=== PATIENT | female | born 1990 | race Caucasian/White ===

== ENCOUNTER 2020-03-29 21:58 | Emergency (ER) | payer BC, OTHER ==
[2020-03-29 22:07] VITALS: BP 106/71; PULSE 100; TEMP 97.6; BMI 25.9
--- NOTE | 2020-03-29 23:28 | PDOC ---
History of Present Illness - General Chief Complaint: Constipation Stated Complaint: CONSTIPATION Time Seen by Provider: 03/29/20 22:29 History Source: Patient Exam Limitations: No Limitations - History of Present Illness Initial Comments: 03/29/20 23:23 This is a 30-year-old female who comes in complaining of constipation. Patient said she feels the urge to go but is unable to get any of the stool out. Patient denies any fever, chills, nausea or vomiting. Patient has history of constipation in the past. Allergies: as per nursing notes Past Medical History: none Social history: Lives with family. No smoking. No alcohol. No illicit drugs. Surgical history: None General: No fevers or chills, no weakness, no weight loss HEENT: No change in vision. No sore throat,. No ear pain CardioVascular: no chest discomfort. No shortness of breath Respiratory:No cough, or wheezing. Gastrointestinal: no nausea, vomiting, diarrhea or + constipation, No rectal bleeding Genitourinary: No dysuria, hematuria, or frequency Musculoskeletal: No joint or muscle pain or swelling Neurologic: No headache, vertigo, dizziness or loss of consciousness Psychiatric: nor depression Skin: No rashes or easy bruising Endocrine: no increased thirst or abnormal weight change Allergic: no skin or latex allergy All other systems reviewed and normal Exam: General: Well-nourished well-developed individual, no acute distress HEENT: Throat: Normal, tonsils normal, no erythema or exudate Neck: Supple, no meningeal signs, no lymphadenopathy Eyes::Pupils equal reactive and round, extraocular motion intact Chest: Nontender to palpation Cardiac: S1-S2 normal, regular rate and rhythm, no murmurs rubs or gallops Respiratory: Lungs clear to auscultation bilateral Abdomen: Soft, nondistended, normal bowel sounds, there is mild tenderness on palpation diffusely Rectal: There is a large amount of stool that I am barely able to palpate with my digital finger because it is above the rectal vault. Extremities: Warm, dry, no cyanosis, clubbing, or edema Skin: No rashes Neuro: Alert and oriented x3, CN II - XII intact, nonfocal exam with normal strength, normal sensation, normal reflexes, normal gait, Psych: Normal mood and affect Assessment and plan: This a 30-year-old female with constipation. Patient given fleets retention enema and a fleets saline enema with some relief of her constipation. Patient discharged home with a bottle of mag citrate. Past History - Medical History Allergies/Adverse Reactions: Allergies Allergy/AdvReac Type Severity Reaction Status Date / Time No Known Allergies Allergy Verified 03/29/20 22:01 Home Medications: Ambulatory Orders Vitamins ([facility]) - [ .Vitamins *Rx*] 1 tab PO DAILY 06/18/12 Bisacodyl Suppository [Dulcolax Suppository -] 10 mg RC DAILY 03/29/20 COPD: No GI Disorders: Yes (COLITIS) - Reproductive History Is Patient Now?: Yes (#): 3 Para: 0 - Psycho-Social/Smoking History Smoking Status: No Smoking History: Never smoked Number of Cigarettes Smoked Daily: 0 - Substance Abuse Hx (Audit-C & DAST Scrn) How often the patient has a drink containing alcohol: Never Score: In Men: 4 or > Positive; In Women: 3 or > Positive: 0 Screen Result (Pos requires Nsg. Audit-10AR): Negative In the last yr the pt used illegal drug/Rx for NonMed reason: No Score: Yes response is considered Positive: 0 Screen Result (Positive result requires Nsg. DAST-10): Negative *Physical Exam - Vital Signs Last Vital Signs Temp Pulse Resp BP Pulse Ox 97.6 F 100 H 20 106/71 99 03/29/20 21:59 03/29/20 21:59 03/29/20 21:59 03/29/20 21:59 03/29/20 21:59 Discharge - Discharge Information Problems reviewed: Yes Clinical Impression/Diagnosis: Constipation Qualifiers: Constipation type: unspecified constipation type Qualified Code(s): K59.00 - Constipation, unspecified Condition: Good Disposition: HOME - Admission No - Follow up/Referral Referrals: Gabriella Mercado MD [Primary Care Provider] - - Patient Discharge Instructions Additional Instructions: Return to the emergency department immediately with ANY new, persistent or worsening symptoms. Continue any medications as previously prescribed by your physician. You should follow up with your primary doctor as soon as possible regarding today's emergency department visit. . Please make sure your doctor reviews the results of your emergency evaluation. Thank you for coming to the Emergency Department today for your care. It was a pleasure to see you today. Please note that your evaluation is INCOMPLETE until you follow-up with your doctor. - Post Discharge Activity
== END 2020-03-30 00:26 | disposition home or self-care (01) ==
LOC: FER 21:58
DX: K59.00 Constipation, unspecified (principal)
CPT/HCPCS: 99283-25

== ENCOUNTER 2021-05-29 20:29 | Emergency (ER) | payer OTHER ==
[2021-05-29 20:51] VITALS: BP 90/63; PULSE 101; TEMP 97.9; BMI 25.9
[2021-05-29] MEDS ORDERED: SODIUM PHOSPHATE/NA BIPHOS 133 ML ENEMA PR ONE (21:11)
== END 2021-05-29 22:46 | disposition home or self-care (01) ==
LOC: FER 20:29
DX: K59.00 Constipation, unspecified (principal)
CPT/HCPCS: 99283-25

== ENCOUNTER 2022-03-03 10:25 | Emergency (ER) | payer OTHER ==
[2022-03-03 10:48] VITALS: BP 117/64; PULSE 80; RESP 18; TEMP 98; BMI 24.5
== END 2022-03-03 12:11 | disposition home or self-care (01) ==
LOC: FER 10:25
DX: F32.A Depression, unspecified (principal); F41.9 Anxiety disorder, unspecified
CPT/HCPCS: 99283-25